=== PATIENT | male | born 1955 | race Caucasian/White ===

== ENCOUNTER 2024-03-27 11:10 | Inpatient (IN) | payer MEDICARE, OTHER ==
[~2024-03-27] VITALS: Ht 182.9 cm; Wt 88.6 kg
[2024-03-27 11:42] LABS: BASOPHILS ABSOLUTE AUTO 0.03 K/mm3 (0.00-0.23); BASOPHILS PERCENT AUTO 0 % (0-2); EOSINOPHILS ABSOLUTE AUTO 0.01 K/mm3 (0.00-0.68); EOSINOPHILS PERCENT AUTO 0 % (0-6); Hematocrit 38.6 % (37.0-53.0); Hemoglobin 13.4 g/dL (13.5-17.5); IMMATURE GRAN ABSOLUTE AUTO 0.03 K/mm3 (0.00-0.10); IMMATURE GRAN PERCENT AUTO 0 % (0-1); LYMPHOCYTES ABSOLUTE AUTO 0.68 K/mm3 (0.84-5.20); LYMPHOCYTES PERCENT AUTO 7 % (21-46); MONOCYTES ABSOLUTE AUTO 0.73 K/mm3 (0.16-1.47); MONOCYTES PERCENT AUTO 7 % (4-13); Mean Corpuscular HGB 31.2 pg (26.0-34.0); Mean Corpuscular HGB Conc 34.7 g/dL (31.5-36.5); Mean Corpuscular Volume 90 fL (80-100); Mean Platelet Volume 9.6 fL (9.1-12.4); NEUTROPHILS ABSOLUTE AUTO 8.53 K/mm3 (1.96-9.15); NEUTROPHILS PERCENT AUTO 85 % (41-73); Platelet Count 184 K/mm3 (150-400); RDW Standard Deviation 42.8 fL (35.1-46.3); Red Blood Cell Count 4.29 M/mm3 (4.30-5.90); White Blood Cell Count 10.01 K/mm3 (4.00-11.30)
[2024-03-27 11:50] LABS: Alanine Aminotransfer (ALT/SGP 31 U/L (12-78); Albumin, Blood 3.2 g/dL (3.4-5.0); Albumin/Globulin Ratio 1.1 (0.8-1.8); Alk Phos 125 U/L (50-136); Anion Gap 14 mmol/L (3-11); Aspartate Aminotrans (AST/SGOT 144 U/L (12-37); Bilirubin, Total 0.6 mg/dL (0.1-1.0); Blood Urea Nitrogen 17 mg/dL (8-24); CO2, Blood 23 mmol/L (21-32); Calcium, Blood 8.8 mg/dL (8.5-10.1); Chloride, Blood 102 mmol/L (98-108); Ethanol (Alcohol), Blood, Med <3 mg/dL; Glomerular Filtration Rate 66 (60-); Glucose, Blood 371 mg/dL (70-99); Potassium, Blood 3.5 mmol/L (3.5-5.5); Sodium, Blood 135 mmol/L (136-145); Total Protein, Blood 6.2 g/dL (6.4-8.2)
[2024-03-27 11:55] LABS: Source, Urine Voided
[2024-03-27 11:56] LABS: Base Excess Venous -1.2 mmol/L; Bicarbonate Venous 22.8 mmol/L (24.0-30.0); PCO2 Venous 44.4 mmHg (38-42); pH Blood Venous 7.35 (7.34-7.37)
[2024-03-27 12:29] LABS: Appearance, Urine Clear (Clear); Bilirubin, Urine Neg (Neg); Blood, Urine 4+ (Neg); Color, Urine Yellow (P-Yellow); Glucose Qualitative, Urine 4+ (Neg); Ketones, Urine 2+ (Neg); Leukocyte Esterase, Urine 2+ (Neg); Nitrite, Urine Pos (Neg); Protein, Urine 2+ (Neg); Specific Gravity, Urine 1.015 (1.003-1.022); Urobilinogen, Urine NORM (Normal)
[2024-03-27 12:35] LABS: Bacteria Many /hpf; Squamous Epithelial Cells Few /hpf (Few); White Blood Cells, Urine TNTC /hpf (0-5)
[2024-03-27 12:37] LABS: Renal Epithelial Rare /hpf (0-Rare)
[2024-03-27 12:39] LABS: U Amphetamine Screen Not Detected; U Barbituate Screen Not Detected; U Benzodiazapine Screen Not Detected; U Buprenorphine Screen Not Detected; U Cannabinoids Screen Not Detected; U Cocaine Screen Not Detected; U Methadone Screen Not Detected; U Methamphetamine Screen Not Detected; U Opiates Screen Not Detected; U Oxycodone Screen Not Detected; U Phencyclidine Screen Not Detected
[2024-03-27] MEDS ORDERED: NS 1,000 ML IV SCH ×2 (12:40→17:05)
[2024-03-27] MEDS ORDERED: LORazepam 2 MG/ML 1ML Injection IV ONE ×2 (12:45→15:45)
[2024-03-27] MEDS ORDERED: CefTRIAXone Sodium 1,000 MG in NS 100 ML IV ONE (12:50)
[2024-03-27 13:21] LABS: International Normalized Ratio 0.96; Prothrombin Time Results 10.3 Sec (9.7-11.5)
[2024-03-27] MEDS ORDERED: FLU VACC TS2024-25(6MOS UP)/PF 45 MCG/0.5 ML SYRINGE IM SCH (13:40)
[2024-03-27] MEDS ORDERED: Albuterol 2.5 MG/3 ML VIAL INH PRN (13:40)
[2024-03-27] MEDS ORDERED: HydrALAZINE HCl 20 MG / ML 1ML Vial IV PRN (13:45)
[2024-03-27] MEDS ORDERED: OLANZapine 10 MG Vial IM PRN (13:45)
[2024-03-27] MEDS ORDERED: Potassium Chloride 20 MEQ in NS 90 ML IV ONE (13:50)
[2024-03-27] MEDS ORDERED: LORazepam 2 MG/ML 1ML Injection ONE (15:44)
[2024-03-27 16:42] VITALS: BP 100/65
--- NOTE | 2024-03-27 16:51 | NUR ---
ADMISSION SUMMARY PATIENT ADMITTED TO MEDICAL FLOOR 1630, CONTACTED DR SCHAEFER AROUND 1650 FOR INITIATION OF JOSE ANTONIO VEST FOR SAFETY. AT THIS TIME DR SCHAEFER INFORMED THIS RN THAT PATIENT WAS TO BE ADMITTED TO ICU NOT MEDICAL, THEN CHANGED HER MIND AND STATED SHE WOULD PLACE ORDERS FOR PCU DUE TO CT FINDINGS. PATIENT NOT ABLE TO ANSWER ORIENTATION QUESTIONS. GARBLED MUMBLED SPEECH, THRASHING IN BED, ATTEMPTING TO BED EXIT SEVERAL TIMES, NOT ABLE TO REORIENT. SKIN CHECK BY 2 RNS, PICTURES TAKEN IN CHART. RIGHT AND LEFT PLANTAR FOOT BLISTERS, DTI TO SACRUM WITH MILKY THICK SUBSTANCE PRESENT AT ANUS. REDNESS TO GROIN, SATURATED IN URINE ON ARRIVAL. CLEANED AND PLACED IN BRIEF. JOSE ANTONIO APPLIED, BED ALARM ON, BED LOW POSITION, CALL LIGHT IN REACH.
[2024-03-27] MEDS ORDERED: Enoxaparin 40 MG/0.4 ML SYR SC SCH (17:00)
[2024-03-27 17:30] LABS: Albumin, Blood 2.9 g/dL (3.4-5.0); Albumin/Globulin Ratio 0.9 (0.8-1.8); Bilirubin, Total 0.7 mg/dL (0.1-1.0); Bun/Creatinine Ratio 16.3 (12.0-20.0); Calcium, Blood 8.3 mg/dL (8.5-10.1); Creatinine, Blood 0.8 mg/dL (0.60-1.20); Globulin, Blood 3.1 g/dL (2.2-4.0); Potassium, Blood 3.4 mmol/L (3.5-5.5)
[2024-03-27] MEDS ORDERED: Insulin Regular 100 UNIT/ML 10ML Vial SC SCH (18:00)
--- NOTE | 2024-03-27 18:00 | NUR ---
CRITICAL VALUE CALLED TO DR SCHAEFER. LACTIC 2.5. NO NEW ORDERS. PATIENT BEING TRANSFERRED TO PCU, REPORT TO RHEA SILVA.
[2024-03-27 18:03] VITALS: BP 176/104
[2024-03-27 18:21] VITALS: BP 149/93
--- NOTE | 2024-03-27 18:22 | NUR ---
PT TRANSFERED TO PCU AT APPROX 1728. PT IS RESTLESS AND CRAWLING OUT OF BED. STAFF UNABLE TO REORIENT PATIENT. JOSE ANTONIO IN PLACE. PT UNABLE TO ANSWER QUESTIONS. PT ATTEMPTING TO SPEECH BUT SPEECH IS GARBLED AND DIFFICULT TO UNDERSTAND. BLADDER SCAN REVEALED 1400ML OF URINE. STRAIGHT CATH REMOVED 950ML. ZYPREXA GIVEN FOR AGGITATION PER EMAR. PT MAINTAINING SPO2 >90% ON RA. TELE PLACED, NSR 80S. CARE CONTINUES
[2024-03-27 20:18] VITALS: BP 148/75
[2024-03-27] MEDS ORDERED: Lactobacil 2-S.Thermo-Bifido 1 1 Cap PO SCH (21:00)
[2024-03-27 23:53] VITALS: BP 113/53
[2024-03-28 03:53] LABS: BASOPHILS ABSOLUTE AUTO 0.05 K/mm3 (0.00-0.23); BASOPHILS PERCENT AUTO 1 % (0-2); EOSINOPHILS ABSOLUTE AUTO 0.04 K/mm3 (0.00-0.68); EOSINOPHILS PERCENT AUTO 0 % (0-6); Hematocrit 36.7 % (37.0-53.0); IMMATURE GRAN ABSOLUTE AUTO 0.03 K/mm3 (0.00-0.10); IMMATURE GRAN PERCENT AUTO 0 % (0-1); LYMPHOCYTES ABSOLUTE AUTO 1.97 K/mm3 (0.84-5.20); LYMPHOCYTES PERCENT AUTO 18 % (21-46); MONOCYTES ABSOLUTE AUTO 0.85 K/mm3 (0.16-1.47); MONOCYTES PERCENT AUTO 8 % (4-13); Mean Corpuscular HGB 32.3 pg (26.0-34.0); Mean Corpuscular HGB Conc 35.4 g/dL (31.5-36.5); Mean Corpuscular Volume 91 fL (80-100); Mean Platelet Volume 9.8 fL (9.1-12.4); NEUTROPHILS ABSOLUTE AUTO 7.83 K/mm3 (1.96-9.15); NEUTROPHILS PERCENT AUTO 73 % (41-73); Platelet Count 167 K/mm3 (150-400); RDW Coefficient Variation 13.2 % (11.7-14.2); RDW Standard Deviation 44.4 fL (35.1-46.3); Red Blood Cell Count 4.03 M/mm3 (4.30-5.90); White Blood Cell Count 10.77 K/mm3 (4.00-11.30)
[2024-03-28 04:24] VITALS: BP 125/63
[2024-03-28 04:34] LABS: Albumin, Blood 2.6 g/dL (3.4-5.0); Albumin/Globulin Ratio 0.9 (0.8-1.8); Bilirubin, Total 0.6 mg/dL (0.1-1.0); Bun/Creatinine Ratio 12.9 (12.0-20.0); Calcium, Blood 8.3 mg/dL (8.5-10.1); Creatinine, Blood 0.77 mg/dL (0.60-1.20); Globulin, Blood 2.9 g/dL (2.2-4.0); Potassium, Blood 3.2 mmol/L (3.5-5.5); Total Protein, Blood 5.5 g/dL (6.4-8.2)
--- NOTE | 2024-03-28 04:58 | NUR ---
SHIFT SUMMARY PT REMAINS DISORIENTED HOWEVER ABLE TO MUMBLE NAME AND DATE OF . WHEN ASKED IF PT HAS FAMILY PT RESPONDS WITH A NO. PT IS ALERT HOWEVER UNABLE TO FOLLOW COMMANDS. OCCASIONALLY PT WAS ABLE TO SAY YES OR NO TO NEEDING TO USING THE BATHROOM BUT WAS UNABLE TO PRODUCE URINE OR A BM. PT WAS BLADDER SCANNED FOR >1000 IN BLADDER. NOTIFIED AND ORDERED TO PLACE HILLS. PT REMAINS IN JOSE ANTONIO WITH 1:1 SITTER D/T BEING UNSAFE TO SELF BY ATTEMPTING TO CRAWL OUT OF BED MULTIPLE TIMES. HOWEVER THIS NURSE DID NOT NEED TO GIVE ANY PRNs THROUGHOUT NIGHT SINCE PT WOULD TRASH ONLY FOR A FEW MINUTES AND THEN WAS ABLE TO GO BACK TO SLEEP. PT WAS ABLE TO SLEEP MOST OF SHIFT HOWEVER WHEN AWAKE PT IS THRASHING IN BED AND TRYING TO LEAVE. PTs VSS ON RA. REMAINS ON TELE NSR IN 70s-80s. PT REMAINS NPO AT THIS TIME. NO FURTHER QUESTIONS OR CONCERNS AT THIS TIME. WILL REPORT TO ONCOMING NURSE.
[2024-03-28 08:04] VITALS: BP 131/68
--- NOTE | 2024-03-28 08:04 | NUR ---
ASSUMPTION NOTE: THIS RN TO ASSUME CARE OF PATIENT. PATIENT IS AWAKE AND WATCHING TV. PATIENT IS ABLE TO TELL ME HE IS AT [facility], DOES NOT KNOWN THE EVENTS LEADING UP TO HIS ADMISSION. ASKED FOR HIS PERSONAL BELONIGNGS AND TO CALL HIS NEIGHBOR GABRIELLA FOR LOCATION OF HIS WALET AND REYES HE IS WORRIED HE WILL NOT BE ABLE TO GET IN. PATIENT VITAL SIGNS TAKEN AND PATIENT IS STABLE. PATIENT HAS BED IN LOWEST POSITION AND CALL LIGHT WITHIN REACH.
[2024-03-28] MEDS ORDERED: Potassium Chloride 40 MEQ in NS 250 ML IV ONE (08:20)
[2024-03-28] MEDS ORDERED: Clopidogrel Bisulfate 75 MG Tab PO SCH (09:00)
[2024-03-28] MEDS ORDERED: CefTRIAXone Sodium 1,000 MG in NS 100 ML IV SCH (09:00)
[2024-03-28] MEDS ORDERED: Aspirin 81 MG TabEC PO SCH (09:00)
[2024-03-28] MEDS ORDERED: Enoxaparin 40 MG/0.4 ML SYR SC SCH (09:00)
--- NOTE | 2024-03-28 09:00 | NUR ---
MD TO BEDSIDE: MD SCHAEFER TO [facility] AND TALKED WITH PATIENT. PATIENT DID ANSWER SOME OF HER QUESTIONS & MD ASKED WHEN CT SCAN WOULD BE DONE. THIS RN TO FIND OUT WHEN IT SHOULD BE COMPLETED ORDER IS IN. PATIENT HAS ANTIBIOTICS RUNNING & POTASSIUM TO FOLLOW. PATIENT HAS CALL LIGHT WITHIN REACH & BED IN LOWEST POSITION.
--- NOTE | 2024-03-28 10:01 | NUR ---
CT DONE: CT & ECHO WAS DONE AND PATIENT IS BACK IN ROOM. WAS GIVEN A SIP OF WATER AND PATIENT DID COUGH A LITTLE BIT AFTER SO WILL CONTINUE TO BE NPO AND ONLY MOUTH SWABS GOING FORWARD. PATIENT HAS CALL LIGHT WITHIN REACH, BED IN LOWEST POSITION AND SITTER IN ROOM.
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
[2024-03-28 11:17] VITALS: BP 144/84
[2024-03-28 15:02] VITALS: BP 144/94
--- NOTE | 2024-03-28 17:33 | NUR ---
SHIFT SUMMARY: PATIENT IS ALERT AND ORIENTED X3, NOT ABLE TO TELL ME THE SITUATION LEADING UP TO HIS ADMISSION. ON TELE SHOWING SINUS WITH RATE IN 80'S. SATTING >92% ON ROOM AIR, EVEN AND UNLABORED RESPIRATIONS AT REST. PATIENT DID WELL TODAY AND EARLY IN THE SHIFT THE SITTER WAS ABLE TO GO HOME. PATIENT ASKED ABOUT CONTACTING HIS NEIRHBOR, SEE PREVIOUS NOTES FOR MORE INFORMATION. WE REPLACED POTASSIUM FOR A LOW LAB THIS AM AND PATIENT WAS GIVEN AN ANTIBIOTIC PER EMAR. PATIENT CONTINUES TO BE IN A JOSE ANTONIO VEST FOR TRYING TO PICK AT LINES/CHORDS. EASILY REDIRECTABLE, PATIENT RESTED MOST OF THE SHIFT AND HAD A CT DONE TODAY, SEE CHART FOR MORE INFORMATION. THIS RN WILL CONTINUE TO MONITOR UNTIL SHIFT CHANGE AND OIL HEATERMAN RN ASSUMES CARE.
[2024-03-28 19:36] VITALS: BP 140/71
[2024-03-28 23:58] VITALS: BP 106/63
[2024-03-29 03:50] VITALS: BP 131/71
[2024-03-29 06:53] LABS: Albumin, Blood 2.4 g/dL (3.4-5.0); Albumin/Globulin Ratio 0.7 (0.8-1.8); Bilirubin, Total 0.5 mg/dL (0.1-1.0); Bun/Creatinine Ratio 17.2 (12.0-20.0); Calcium, Blood 8.2 mg/dL (8.5-10.1); Creatinine, Blood 0.76 mg/dL (0.60-1.20); Globulin, Blood 3.3 g/dL (2.2-4.0); Potassium, Blood 3.4 mmol/L (3.5-5.5); Total Protein, Blood 5.7 g/dL (6.4-8.2)
--- NOTE | 2024-03-29 06:53 | NUR ---
SHIFT SUMMARY: PT IS A&OX3, UNSURE WHY HE IS IN THE HOSPITAL. VSS ON RA. SR 70'S-80'S. C/O PAIN TO HIS LOWER BACK, APPLIED KPAD. PT REMAINS NPO, BUT FREQUENTLY REQUESTING SOMETHING TO DRINK. THIS RN GAVE HIM A FEW ICECHIPS, HE DID WELL. HILLS CATHETER DRAINING ADEQUATE AMOUNTS OF MARCIAL COLORED URINE TO GRAVITY. NO BM THIS SHIFT. PT REMAINS IN NONVIOLENT JOSE ANTONIO VEST FOR SAFETY. PT HAD [facility]ISIT[facility]. BED IN LOWEST POSITION, CALL LIGHT WITHIN REACH. PT DOES NOT USE CALL LIGHT APPROPRIATELY, BED ALARM SET FOR PT'S SAFETY.
[2024-03-29 07:01] VITALS: BP 109/61
--- NOTE | 2024-03-29 07:12 | NUR ---
assumption note: this rn to assume care of patient. patient is resting but easily arousable. is alert and oriented x3, not able to give situation leading up to admission. vital signs taken and patient stable. has bed in lowest position and call light within reach.
[2024-03-29] MEDS ORDERED: Aspirin 300 MG Supp PR SCH (09:00)
[2024-03-29] MEDS ORDERED: Atorvastatin 40 MG Tab PO SCH (09:00)
[2024-03-29] MEDS ORDERED: Clopidogrel Bisulfate 75 MG Tab PO SCH (09:00)
[2024-03-29] MEDS ORDERED: Aspirin 81 MG TabEC PO SCH (09:00)
--- NOTE | 2024-03-29 09:00 | NUR ---
SPEECH: PATIENT WAS SEEN BY SPEECH AND IS NOW ON A REGULAR DIET. PATIENT AWARE AND IS ONLY WANTING WATER AT THIS TIME. PATIENT SITTING IN CHAIR WITH CHAIR ALARM ON AND CALL LIGHT WITHIN REACH.
--- NOTE | 2024-03-29 10:45 | NUR ---
md called this rn called md regarding speech evaulation and asking to change medicaitons to po. verbal confirmation to change aspirin to po and patient will become achs blood sugar.
[2024-03-29] MEDS ORDERED: Aspirin 81 MG Chew PO SCH (10:50)
[2024-03-29] MEDS ORDERED: Insulin Regular 100 UNIT/ML 10ML Vial SC SCH (11:30)
[2024-03-29 11:38] VITALS: BP 118/58
[2024-03-29] MEDS ORDERED: QUETIAPINE FUMA5012 PO (13:04)
[2024-03-29] MEDS ORDERED: [UNRECOGNIZED DRUG - CODE] PO (13:04)
[2024-03-29] MEDS ORDERED: SEMGLEE (Y100 UNIT/2 SC (13:05)
[2024-03-29] MEDS ORDERED: Prinivil10 MG PO (13:06)
[2024-03-29] MEDS ORDERED: ATORVASTATIN CA20 MG PO (13:06)
[2024-03-29] MEDS ORDERED: Nicotine 21 MG PATCH TOP SCH (15:15)
--- NOTE | 2024-03-29 15:36 | NUR ---
PATIENT AFIB: THIS RN WAS NOTIFIED BY ROOMS DIRECTOR THAT PATIENT TACH'D UP INTO THE 160'S AND WAS SUSTAINING. THIS RN TO CHECK PATIENT, HE IS ASYMPTOMATIC AND STATED HE FEELS LIKE HIS HEART IS GOING FAST BUT THAT IS IT. PATENT BROUGHT HIMSELF OUT OF IT AND BACK INTO SINUS WITH RATE IN 80S.
--- NOTE | 2024-03-29 15:37 | NUR ---
MD NOTIFIED: THIS RN NOTIFIED MD REGARDING PATIENT SUSTAINING INTO THE 160'S WITH AFIB AND NOTIFIED THAT PATIENT HAD A PREVIOUS EVENT OF AFIB UPON ADMISSION. MD WANTED THE STRIPS PRINTED AND WILL COME BY TO READ THEM.
[2024-03-29 16:16] VITALS: BP 131/93
--- NOTE | 2024-03-29 18:41 | NUR ---
SHIFT SUMMARY: PATIENT IS ALERT AND ORIETNED X4 AND COOPERATIVE WITH HIS CARE. IS CONFUSED AT TIMES VERY IMPUSLIVE. THE CHAIR AND BED ALARM ARE ON, PATIENT HAD A SITTER ASSISTED THROUGH THE SHIFT. PATIENT ON TELE AND HAD A THREE AND A HALF MINUTE RUN OF WHAT LOOKS LIKE AFIB, SUSTAIING IN THE 160'S. MD WAS NOTIFIED AND SHE CAME AND TOOK A LOOK AT THE STRIPS. PATIENT HAD A PREVIOUS EVENT ON THE DAY OF ADMISSION AROUND 10PM AND THAT STRIP WAS PRINTED WELL. PATIENT WAS ASYMPTOMATIC DURING THIS EVENT, DID STATE HE FELT LIKE HIS HEART WAS GOING REALLY FAST. PATIENT WAS SEEN BY NEIGHBORS AND HIS [employer] APPRENTICE TODAY. PATIENT NOTIFIED THAT HIS STOVE AND WALL WAS REPLACED AND WHEN HE IS SET TO DISCHARGE HE WILL BE ABLE TO GO HOME. A DOPPLER OF THE CARTOID WAS ORDERED PER MD, LOOK THROUGH THE EMAR FOR RESULTS. PATIENT WAS GIVEN COVERAGE FOR BLOOD SUGARS PER EMAR THROUGHOUT THE SHIFT. THE HILLS WAS REMOVED AND PATIENT WAS ABLE TO VOID INDEPDENTLY. PATIENT IS SET TO DISCHARGE WITHIN THE NEXT FEW DAYS. THIS RN WILL CONTINUE TO MONITOR UNTIL MACHINE MOVER RN ASSUMES CARE.
[2024-03-29 20:04] VITALS: BP 149/70
[2024-03-29] MEDS ORDERED: Acetaminophen 325 MG TABLET PO PRN (21:55)
[2024-03-30 04:30] VITALS: BP 147/78
--- NOTE | 2024-03-30 06:56 | NUR ---
SHIFT SUMMARY: PT IS A&OX3, UNSURE WHY HE IS IN THE HOSPITAL. NO ACUTE EVENTS THIS SHIFT. VSS ON RA. SR 70'S-80'S. DENIES PAIN. TOLERATING A REGULAR, EASY TO CHEW DIET. TAKES PILLS WHOLE, ONE AT A TIME WITH FLUIDS. VOIDING IN TOILET, X1 BM THIS SHIFT. PT CONTINUES TO HAVE A 1:1 SITTER AT BEDSIDE FOR IMPULSIVITY AND THAT HE DOES NOT USE HIS CALL LIGHT APPROPRIATELY. BED IN LOWEST POSITION, CALL LIGHT WITHIN REACH.
[2024-03-30 08:02] VITALS: BP 116/76
[2024-03-30] MEDS ORDERED: ASPI81CH PO (11:37)
[2024-03-30] MEDS ORDERED: CEFU500T30 PO (11:38)
[2024-03-30] MEDS ORDERED: NICO21TP TOP (11:38)
== END 2024-03-30 12:46 | disposition home or self-care (01) | DRG 64 ==
LOC: ER 11:10 → EDBD 11:11 → MEDS 11:11 → ERHOLD 11:11 → PCU 16:00 → MEDS 16:08 → PCU 16:08 → MEDS 16:10 → PCU 17:43
PROVIDERS: Emergency Medicine; Student in an Organized Health Care Education/Training Program; ADMIT Internal Medicine
DX: I63.9 Cerebral infarction, unspecified (principal); G93.41 Metabolic encephalopathy; G93.6 Cerebral edema; N39.0 Urinary tract infection, site not specified; E11.9 Type 2 diabetes mellitus without complications; E87.6 Hypokalemia; T59.811A Toxic effect of smoke, accidental (unintentional), initial encounter; Z78.1 Physical restraint status; I48.0 Paroxysmal atrial fibrillation; B95.7 Other staphylococcus as the cause of diseases classified elsewhere
CPT/HCPCS: 36415; 70450; 70496; 70498; 71045; 80053; 80320; 81001; 82140; 82375; 82803; 82947; 83036; 83605; 84443; 85025; 85610; 87077; 87086; 87186; 92610; 93005; 93010; 93306; 93880; 94762; 96365; 96366; 96367; 96375; 96376; 97110; 97161; 97165; 97530; 99285-25; A9270; G0378; J0696; J1650; J1815; J2060; J3480; J7030; J7050